=== PATIENT | female | born 1965 | race Caucasian/White ===

== ENCOUNTER 2024-05-03 12:48 | Emergency (ER) | payer BC ==
[~2024-05-03] VITALS: Ht 157.5 cm; Wt 62.1 kg
[2024-05-03 12:50] VITALS: O2SAT 97
--- NOTE | 2024-05-03 13:28 | NUR ---
[email or web address], medical screening exam in progress
[2024-05-03] MEDS ORDERED: HYDROCODONE/APAP 5-325MG TABLET ONE (13:47)
[2024-05-03] MEDS: HYDROCODONE/APAP 5-325MG TABLET PO ONE (13:51)
[2024-05-03] MEDS ORDERED: OXYC-133 PO (14:41)
--- NOTE | 2024-05-03 14:47 | NUR ---
Patient discharged to home by Dr Gaming in stable condition. Written and verbal after care instructions given. Patient verbalized understanding and compliance of instructions. Stressed follow up with primary doctor and dentist or return to ER for worsening s/s.
== END 2024-05-03 14:49 | disposition home or self-care (01) ==
LOC: ER 12:48
DX: K08.89 Other specified disorders of teeth and supporting structures (principal); Z86.73 Personal history of transient ischemic attack (TIA), and cerebral infarction without residual deficits; Z79.891 Long term (current) use of opiate analgesic; R51.9 Headache, unspecified
CPT/HCPCS: 70450; 70486; A4606; A4663